=== PATIENT | female | born 1995 | race Caucasian/White ===

== ENCOUNTER → 2016-06-30 | Outpatient (CLI) | payer BC ==
[~2016-06-30] MED LIST: AMPH20TA2 PO; BCPILLS PO
== END | disposition home or self-care (01) ==
LOC: C.PAPS 11:14
PROVIDERS: ATTEND Physician Assistant
DX: Z01.419 Encounter for gynecological examination (general) (routine) without abnormal findings (principal)

== ENCOUNTER 2016-07-02 01:04 | Emergency (ER) | payer BC ==
[~2016-07-02] VITALS: Ht 167.6 cm; Wt 67.7 kg
[~2016-07-02 01:04] MED LIST changes: -AMPH20TA2 PO
[2016-07-02 01:14] VITALS: TEMP 36.9; Ht 167.6 cm; Wt 67.7 kg
[2016-07-02 01:19] VITALS: O2SAT 99
[2016-07-02 02:04] LABS: PREG INTERNAL NEGATIVE QC NEG CLEAR BACKGROUND; PREG INTERNAL POSITIVE QC POS CONTROL LINE
[2016-07-02 02:09] LABS: BUN/CREATININE RATIO 20.1 (10-20); CALCIUM 8.3 mg/dl (8.5-10.1); CREATININE 0.74 mg/dl (0.60-1.20); POTASSIUM 3.4 mmol/L (3.5-5.1)
[2016-07-02] MEDS ORDERED: AMPH20TA2 PO (04:49)
[2016-07-02 05:31] VITALS: BP 99/61; PULSE 85; O2SAT 97
--- NOTE | 2016-07-02 06:08 | DIAGNOSTIC IMAGING REPORT ---
CHEST ONE VIEW PORTABLE CLINICAL HISTORY: ALCOHOL OD overdose COMPARISON STUDY: 04/16/2011 FINDINGS: Increase in density over the pulmonary apical regions bilaterally. Lungs otherwise appear clear. Diaphragms smooth. IMPRESSION: Mild nonspecific increase in density over the upper lung regions bilaterally. Electronically signed by: Jesus Underwood M.D. 07/02/2016 6:07 AM Dictated Date/Time: 07/02/2016 6:06 AM
--- NOTE | 2016-07-03 05:29 | EMERGENCY ROOM VISIT NOTE ---
ED Visit Note First contact with patient: 01:22 CHIEF COMPLAINT: Altered mental status from Alcohol overdose HISTORY OF PRESENT ILLNESS: This 20 year old female patient presents to the emergency department via ambulance for evaluation of altered mental status, presumably from alcohol intoxication. The patient was evidently drinking in a bar downtown. She went outside for a smoke, and when she came back inside, her boyfriend noted that she was acting strange. The patient had several episodes of emesis and was not acting herself. She is now in the ER for further management. The patient is reportedly healthy without chronic medical disease. No chronic medical disease REVIEW OF SYSTEMS: Review of systems was somewhat limited secondary to patient' s presumed alcohol intoxication status. Review of systems was performed to the best of our ability and reperformed as the patient began to sober up. All other systems were reviewed and are negative. ALLERGIES: See EMR MEDICATIONS: See EMR PMH: No chronic medical disease SOCIAL HISTORY: Drinks alcohol. Lives locally. PHYSICAL EXAM VITALS: Vitals are noted on the nurse's note and reviewed by myself. Vital signs stable. GENERAL: White female, who is in no acute distress and resting comfortably. Patient is visibly altered and smells of alcohol. HEAD: Normocephalic atraumatic. EARS: External ear normal. External auditory canals clear, tympanic membranes pearly castro without erythema or effusion bilaterally. EYES: Pupils equal round and reactive to light and accommodation. Conjunctivae without injection, sclerae without icterus. Extraocular movements intact. NOSE: Patent, turbinates without inflammation or discharge. MOUTH: Mucous membranes moist. Tonsils are not enlarged. Pharynx without erythema, blood, vomitus, or exudate. Uvula midline. Airway patent. NECK: Supple without nuchal rigidity. No lymphadenopathy. Cervical spine is nontender. HEART: Regular rate and rhythm without murmurs gallops or rubs. LUNGS: Coarse breath sounds bilaterally without wheezes, rales or rhonchi. No retractions or accessory muscle use. ABDOMEN: Positive normal bowel sounds x 4. Soft, nontender, without masses or organomegaly. No guarding or rebound tenderness. MUSCULOSKELETAL: No muscle atrophy, erythema, or edema noted. Gross motor function intact to all extremities. NEURO: Patient was alert to person but not place or time. They appear with altered mental status. SKIN: The skin was without rashes, erythema, edema, or bruising. No Tenting of the skin. EMERGENCY DEPARTMENT COURSE: Physical exam and history was performed. Nursing notes and EMR were reviewed. The patient appears to be altered on my examination. I suspect this is from an alcohol overdose. Conservative care measures and aspiration precautions were instituted. The patient was placed on helmet hat brim cutter and watched during the patient's stay. The patient was placed in a prone position. The patient does have coarse breath sounds on exam. Chest x-ray was performed: CHEST ONE VIEW PORTABLE CLINICAL HISTORY: ALCOHOL OD overdose COMPARISON STUDY: 04/16/2011 FINDINGS: Increase in density over the pulmonary apical regions bilaterally. Lungs otherwise appear clear. Diaphragms smooth. IMPRESSION: Mild nonspecific increase in density over the upper lung regions bilaterally. Blood work was obtained and was reviewed. The patient's blood alcohol level was 180. This appears to be the primary cause of the altered status. She does not appear to have obvious pneumonia or aspiration event. Patient was reevaluated multiple times throughout the course of their emergency department stay. Over time the patient did sober up and was able to talk, walk , and drink fluids without difficulty. The patient was felt stable for discharge home. The patient was given alcohol intoxication handouts. The patient was discharged home in stable condition with her boyfriend. Differential diagnosis: Etiologies such as alcohol intoxication, metabolic, infection, hypoglycemia, electrolyte abnormalities, cardiac sources, intracerebral event, toxicologic, neurologic, as well as others were entertained. DIAGNOSIS: Acute alcohol intoxication Current/Historical Medications Scheduled Amphetamine-Dextroamphetamine 20MG (Adderall 20MG), 20 MG PO BID Allergies Coded Allergies: No Known Allergies (Unverified , 07/02/16) Vital Signs Date Time Temp Pulse Resp B/P Pulse Ox O2 Delivery O2 Flow Rate FiO2 07/02/16 05:31 85 18 99/61 97 07/02/16 05:09 99 07/02/16 03:18 74 18 83/34 97 Nasal Cannula 2.0 07/02/16 01:21 74 07/02/16 01:19 99 Nasal Cannula 2.0 07/02/16 01:14 91 Room Air 07/02/16 01:14 36.9 76 16 127/76 91 Room Air Laboratory Results 07/02/16 01:21 Test 07/02/16 01:21 Anion Gap 11.0 mmol/L (3-11) Est Creatinine Clear Calc Drug Dose 112.5 ml/min Estimated GFR () 134.2 Estimated GFR (Non- 115.8 BUN/Creatinine Ratio 20.1 (10-20) Calcium Level 8.3 mg/dl (8.5-10.1) Human Chorionic Gonadotropin, Qual NEG (NEG) Ethyl Alcohol mg/dL 180.0 mg/dl (0-3) Departure Information Impression Primary Impression: Alcohol intoxication Dispostion Home / Self-Care Condition GOOD Forms HOME CARE DOCUMENTATION FORM, IMPORTANT VISIT INFORMATION Patient Instructions My [facility] Additional Instructions You were seen and evaluated today on an emergency basis only. This is not a substitute for, or an effort to provide, complete comprehensive medical care. It is not possible to recognize and treat all injuries or illnesses in a single emergency department visit. Keep well-hydrated. Small sips of water over a long period of time are better tolerated than large amounts at once. Tylenol 1000 mg every 6 hours as needed for pain (Maximum 3000 mg Tylenol in 24 hr period). Follow up with family doctor as needed. You are welcome to return to the emergency department anytime with new, worsening, or concerning symptoms.
== END 2016-07-02 05:33 | disposition home or self-care (01) ==
LOC: EDBD 01:04 → C.EDC 01:05
DX: F10.129 Alcohol abuse with intoxication, unspecified (principal); Y90.6 Blood alcohol level of 120-199 mg/100 ml; F17.200 Nicotine dependence, unspecified, uncomplicated

== ENCOUNTER 2017-02-16 15:01 | Emergency (ER) | payer BC ==
[~2017-02-16] VITALS: Ht 177.8 cm; Wt 83.0 kg
[~2017-02-16 15:01] MED LIST changes: +AMPH20TA2 PO; -BCPILLS PO
[2017-02-16 15:03] VITALS: TEMP 36.7; Ht 177.8 cm; Wt 83.0 kg
[2017-02-16] MEDS ORDERED: ONDANSETRON INJ 2 MG/ML 2 ML VIAL IV STA (15:20)
--- NOTE | 2017-02-16 15:25 | EMERGENCY ROOM VISIT NOTE ---
History First contact with patient: 15:05 Chief Complaint: VOMITING Stated Complaint: V/D, ABD PAIN, HEADACHE Nursing Triage Summary: pt to the ED with diffuse abd pain and n/v since 630 am today History of Present Illness The patient is a 21 year old female who presents to the Emergency Room with complaints of nausea, vomiting and diarrhea that started at 6:30 this morning. The vomiting has been more significant than the diarrhea. She complains of mild , diffuse abdominal cramping. She denies any focal pain. No fever or chills. A friend was sick with similar symptoms. Review of Systems 10 system review performed and negative unless noted in HPI or below Past Medical/Surgical History Depression ADHD Social History Smoking Status: Never Smoker Occupation Status: student Current/Historical Medications Scheduled Amphetamine-Dextroamphetamine 20MG (Adderall Xr 20MG), 20 MG PO QAM Dicyclomine Hcl (Bentyl), 20 MG PO TID Fluoxetine (Prozac), 20 MG PO DAILY Scheduled PRN Promethazine Hcl (Phenergan), 25 MG PO Q6H PRN for Nausea Physical Exam Vital Signs Date Time Temp Pulse Resp B/P (MAP) Pulse Ox O2 Delivery O2 Flow Rate FiO2 02/16/17 18:48 96 16 128/78 98 02/16/17 15:03 36.7 96 16 121/76 98 Room Air Physical Exam VITALS: Vitals are noted on the nurse's note and reviewed by myself. Vital signs stable. GENERAL: 21-year-old female, fairly uncooperative for exam; therefore, the exam is limited SKIN: The skin was without rashes, erythema, edema, or bruising. HEAD: Normocephalic atraumatic. MOUTH: Mucous membranes slightly dry HEART: Regular rate and rhythm without murmurs gallops or rubs. LUNGS: Clear to auscultation bilaterally without wheezes, rales or rhonchi. No accessory muscle use. ABDOMEN: Positive bowel sounds x 4.Soft, nontender, without organomegaly. No guarding or rebound tenderness. MUSCULOSKELETAL: No muscle atrophy, erythema, or edema noted. Strength 5/5 throughout. NEURO: Patient was alert and oriented to person place and time. Normal sensation to touch. No focal neurological deficits. Medical Decision & Procedures Laboratory Results 02/16/17 15:30 Red Blood Count 4.62, Mean Corpuscular Volume 87.7, Mean Corpuscular Hemoglobin 29.4, Mean Corpuscular Hemoglobin Concent 33.6, Mean Platelet Volume 9.0, Neutrophils (%) (Auto) 95.0, Lymphocytes (%) (Auto) 1.9, Monocytes (%) (Auto) 2.9, Eosinophils (%) (Auto) 0.0, Basophils (%) (Auto) 0.1, Neutrophils # (Auto) 7.80, Lymphocytes # (Auto) 0.16, Monocytes # (Auto) 0.24, Eosinophils # (Auto) 0.00, Basophils # (Auto) 0.01 02/16/17 15:30 Test 02/16/17 15:30 02/16/17 15:50 White Blood Count 8.22 K/uL (4.8-10.8) Red Blood Count 4.62 M/uL (4.2-5.4) Hemoglobin 13.6 g/dL (12.0-16.0) Hematocrit 40.5 % (37-47) Mean Corpuscular Volume 87.7 fL (80-100) Mean Corpuscular Hemoglobin 29.4 pg (25-34) Mean Corpuscular Hemoglobin Concent 33.6 g/dl (32-36) Platelet Count 210 K/uL (130-400) Mean Platelet Volume 9.0 fL (7.4-10.4) Neutrophils (%) (Auto) 95.0 % Lymphocytes (%) (Auto) 1.9 % Monocytes (%) (Auto) 2.9 % Eosinophils (%) (Auto) 0.0 % Basophils (%) (Auto) 0.1 % Neutrophils # (Auto) 7.80 K/uL (1.4-6.5) Lymphocytes # (Auto) 0.16 K/uL (1.2-3.4) Monocytes # (Auto) 0.24 K/uL (0.11-0.59) Eosinophils # (Auto) 0.00 K/uL (0-0.5) Basophils # (Auto) 0.01 K/uL (0-0.2) RDW Standard Deviation 49.0 fL (36.4-46.3) RDW Coefficient of Variation 15.4 % (11.5-14.5) Immature Granulocyte % (Auto) 0.1 % Immature Granulocyte # (Auto) 0.01 K/uL (0.00-0.02) Anion Gap 6.0 mmol/L (3-11) Est Creatinine Clear Calc Drug Dose 147.9 ml/min Estimated GFR () 142.5 Estimated GFR (Non- 123.0 BUN/Creatinine Ratio 23.7 (10-20) Calcium Level 8.6 mg/dl (8.5-10.1) Magnesium Level 2.0 mg/dl (1.8-2.4) Total Bilirubin 0.8 mg/dl (0.2-1) Aspartate Amino Transf (AST/SGOT) 29 U/L (15-37) Alanine Aminotransferase (ALT/SGPT) 32 U/L (12-78) Alkaline Phosphatase 73 U/L (45-117) Total Protein 8.1 gm/dl (6.4-8.2) Albumin 4.0 gm/dl (3.4-5.0) Globulin 4.1 gm/dl (2.5-4.0) Albumin/Globulin Ratio 1.0 (0.9-2) Urine Color YELLOW Urine Appearance CLOUDY (CLEAR) Urine pH >= 9.0 (4.5-7.5) Urine Specific [place] 1.028 (1.000-1.030) Urine Protein NEG (NEG) Urine Glucose (UA) NEG (NEG) Urine Ketones NEG (NEG) Urine Occult Blood NEG (NEG) Urine Nitrite NEG (NEG) Urine Bilirubin NEG (NEG) Urine Urobilinogen NEG (NEG) Urine Leukocyte Esterase NEG (NEG) Urine WBC (Auto) 1-5 /hpf (0-5) Urine RBC (Auto) 0-4 /hpf (0-4) Urine Hyaline Casts (Auto) 1-5 /lpf (0-5) Urine Epithelial Cells (Auto) >30 /lpf (0-5) Urine Bacteria (Auto) 1+ (NEG) Urine Test NEG (NEG) Medications Administered Medications (Trade) Dose Ordered Sig/Autumn Route Start Time Stop Time Status Last Admin Dose Admin Sodium Chloride 1,000 ml @ 999 mls/hr Q1H1M ONCE IV 02/16/17 15:30 02/16/17 16:30 DC 02/16/17 15:51 999 MLS/HR Ondansetron HCl (Zofran Inj) 4 mg NOW STAT IV 02/16/17 15:20 02/16/17 15:22 DC 02/16/17 15:51 4 MG Promethazine HCl 12.5 mg/Sodium Chloride 50.5 ml @ 204 mls/hr NOW STAT IV 02/16/17 16:34 02/16/17 16:48 DC 02/16/17 17:40 204 MLS/HR Dicyclomine HCl (Bentyl Tab) 20 mg ONE ONCE PO 02/16/17 16:45 02/16/17 16:46 DC 02/16/17 17:40 20 MG Sodium Chloride 1,000 ml @ 999 mls/hr Q1H1M ONCE IV 02/16/17 16:45 02/16/17 17:45 DC 02/16/17 17:40 999 MLS/HR ED Course Patient was seen and examined Vital signs including blood pressure were reviewed medications list was verified with patient Labs were obtained, and a saline lock was established The patient was medicated with Zofran and hydrated with 1 L of normal saline Upon reevaluation, the patient was still nauseated. She was medicated with Phenergan. She was given another liter of normal saline. She was also medicated with Bentyl. The patient was feeling better and tolerating liquids. I discussed the findings of the workup with her and her mother. They voiced understanding, and more comfortable being discharged home. I reviewed discharge instructions the patient. They voiced understanding and had no further questions. Medical Decision Differential diagnosis: Viral GI illness, bacterial GI illness, C. difficile colitis, acute abdomen This patient is a 21-year-old female that presents with nausea, vomiting and diarrhea. A close friend was recently sick with similar symptoms. She was fairly uncooperative for the exam. Her abdomen was benign. I do not suspect an acute abdomen. This is likely a viral GI illness. The patient had good symptomatic control in the emergency department. Her vital signs are stable. She is tolerating liquids. Believe she is stable to be discharged home with close follow-up. She and her mother are in agreement with this plan. He'll given a short prescription for Phenergan and Bentyl. They will return to the emergency department with any worsening symptoms. This chart was completed in part utilizing [employer] Voice Recognition software. Attempts were made to minimize the grammatical errors, random word insertions, pronoun errors and incomplete sentences. Any formal questions or concerns about the content, text or information contained within the body of this dictation should be directly addressed to the provider for clarification. Medication Reconcilliation Current Medication List: was personally reviewed by me Blood Pressure Screening Patient's blood pressure: Normal blood pressure Impression Primary Impression: Gastroenteritis Departure Information Dispostion Home / Self-Care Condition GOOD Prescriptions Dicyclomine Hcl (BENTYL) 20 Mg Tab 20 MG PO TID for abdominal pain, #12 TAB Prov: Denita Anaya PA-C 02/16/17 Promethazine Hcl (Phenergan) 25 Mg Tab 25 MG PO Q6H Y for Nausea, #12 TAB Prov: Denita Anaya PA-C 02/16/17 Referrals [place] Alt[place]irano M.D. (PCP) Patient Instructions ED Vomiting Diarrhea Nonspecific Ad, My [facility] Additional Instructions Veronica was evaluated in the emergency department for vomiting and diarrhea. This is likely a viral gastrointestinal illness that will resolve on its own. Please take Phenergan 1 tab every 6 hours as needed for nausea Bentyl 1 tab every 8 hours as needed for abdominal cramping/pain It is very important to stay well hydrated. Please increase fluids. I recommend water and sports drinks. If tolerating, you may advance to a bland diet. Please follow up with your primary care physician if there is no improvement in your symptoms in the next 2-3 days Please do not hesitate to return to the emergency department with any new, worsening or concerning symptoms; especially,
[2017-02-16] MEDS ORDERED: SODIUM CHLORIDE 0.9% 1000ML 1,000 ML IV ONE ×2 (15:30→16:45)
[2017-02-16] MEDS ORDERED: FLUO20CA35 PO (15:37)
[2017-02-16] MEDS ORDERED: AMPH20CA3 PO (15:37)
[2017-02-16 16:02] LABS: BASO % 0.1 %; BASO ABS # 0.01 K/uL (0-0.2); COMPLETE YES; HEMATOCRIT 40.5 % (37-47); IG% 0.1 %; LYMPH % 1.9 %; LYMPH ABS # 0.16 K/uL (1.2-3.4); MEAN CELL VOLUME 87.7 fL (80-100); MEAN CORPUSCULAR HEMOGLOBIN 29.4 pg (25-34); MEAN CORPUSCULAR HGB CONC 33.6 g/dl (32-36); MONO % 2.9 %; PLATELET COUNT 210 K/uL (130-400); RED BLOOD COUNT 4.62 M/uL (4.2-5.4); WHITE BLOOD COUNT 8.22 K/uL (4.8-10.8)
[2017-02-16 16:14] LABS: URINE APPEARANCE CLOUDY (CLEAR); URINE BILIRUBIN NEG (NEG); URINE COLOR YELLOW; URINE EPITHELIAL CELL AUTO >30 /lpf (0-5); URINE NITRITE NEG (NEG); URINE PH >= 9.0 (4.5-7.5); URINE SPECIFIC GRAVITY 1.028 (1.000-1.030); UROBILINOGEN NEG (NEG)
[2017-02-16 16:21] LABS: MANUAL MICROSCOPIC REQUIRED? NO; REVIEW REQ? NO; SULFASALICYLIC ACID NEG (NEG)
[2017-02-16 16:25] LABS: BUN/CREATININE RATIO 23.7 (10-20); CALCIUM 8.6 mg/dl (8.5-10.1); CREATININE 0.7 mg/dl (0.60-1.20); POTASSIUM 3.5 mmol/L (3.5-5.1)
[2017-02-16] MEDS ORDERED: PROMETHAZINE HCL INJ 12.5 MG in SODIUM CHLORIDE 0.9% 50ML 50 ML IV STA (16:34)
[2017-02-16] MEDS ORDERED: DICYCLOMINE HCL 20 MG TAB PO ONE (16:45)
[2017-02-16] MEDS ORDERED: PROM25TA9 PO (17:49)
[2017-02-16] MEDS ORDERED: DICY20TA35 PO (17:49)
[2017-02-16 18:48] VITALS: BP 128/78; PULSE 96; O2SAT 98
== END 2017-02-16 18:50 | disposition home or self-care (01) ==
LOC: C.EDB 15:03
DX: K52.9 Noninfective gastroenteritis and colitis, unspecified (principal); F32.9 Major depressive disorder, single episode, unspecified; F90.9 Attention-deficit hyperactivity disorder, unspecified type